=== PATIENT | male | born 1955 | race Hispanic/Latino ===

== ENCOUNTER 2022-12-03 05:56 | Observation (INO) | payer BC, MEDICARE ==
[2022-12-03] MEDS ORDERED: Vancomycin 1 GM VIAL ONE ×2 (06:31→09:36)
[2022-12-03] MEDS ORDERED: Thrombin 5000 UNITS/5 ML VIAL ONE (06:31)
[2022-12-03] MEDS ORDERED: Fentanyl 250 MCG/5 ML VIAL ONE (07:04)
[2022-12-03] MEDS ORDERED: MINERAL OIL/WHITE PETROLATUM 3.5 GM TUBE ONE (07:04)
[2022-12-03] MEDS ORDERED: Sodium Chloride 0.9% 100 ML ONE (07:13)
[2022-12-03] MEDS ORDERED: CEFAZOLIN 2 GM VIAL ONE (07:13)
[2022-12-03 07:18] LABS: #Eosinphils 0.1 thou/uL (0.0-0.7); #Lymphocytes 1.1 thou/uL (1.20-3.40); #Monocytes 0.4 thou/uL (0.11-0.59); #Neutrophils 3.5 thou/uL (1.40-6.50); %Basophils 0.7 % (0.0-1.0); %Eosinophils 1.8 % (0.0-10.0); %Lymphocytes 21.8 % (21.0-51.0); %Neutrophils 67.7 % (42.0-75.0); Mean Corpuscular HGB CONC 33.4 g/dL (32.0-36.0); Mean Corpuscular Hemoglobin 31.1 pg (27.0-31.0); Mean Corpuscular Volume 93.1 fl (78.0-98.0); Mean Platelet Volume 9.2 fL (7.4-10.4); Platelet Count 226 10x3/uL (130-400); RBC Distribution Width 12.2 % (11.5-14.5); White Blood Cell (WBC) Count 5.1 10x3/uL (4.8-10.8)
[2022-12-03 07:29] LABS: INR-International Normal Ratio 1.1; Prothrombin Time 14.5 sec (12.0-14.7)
[2022-12-03 07:31] LABS: Anion Gap 11 mmol/L (10-20); BUN (Urea Nitrogen) 16 mg/dL (8.4-25.7); Calc. Creatinine Clearance 95 mL/min (70-130); Calcium 9.2 mg/dL (7.8-10.44); Carbon Dioxide 24 mmol/L (23-31); Chloride 108 mmol/L (98-107); Estimated GFR 93; Glucose 94 mg/dL (80-115); Potassium 4.1 mmol/L (3.5-5.1); Sodium 139 mmol/L (136-145)
[2022-12-03] MEDS ORDERED: Dexamethasone 20 MG/5 ML VIAL ONE (07:32)
[2022-12-03] MEDS ORDERED: NEOSTIGMINE 3 MG/3 ML SYR 3 MG/3 ML SYRINGE ONE (07:32)
[2022-12-03] MEDS ORDERED: PROPOFOL 200 MG/20 ML VIAL ONE (07:32)
[2022-12-03] MEDS ORDERED: ePHEDrine Sulfate 50 MG/10 ML VIAL ONE (07:32)
[2022-12-03] MEDS ORDERED: GLYCOPYRROLATE/PF 0.2 MG/ML VIAL ONE (07:32)
[2022-12-03] MEDS ORDERED: Rocuronium Bromide 10 MG/ML (10ML VIAL) ONE (07:32)
[2022-12-03] MEDS ORDERED: Ketorolac Tromethamine 30 MG/ML VIAL ONE (07:32)
[2022-12-03] MEDS ORDERED: Lidocaine 1% PF 5 ML VIAL ONE (07:32)
[2022-12-03] MEDS ORDERED: Ondansetron PF 4 MG/2 ML Vial ONE (07:32)
[2022-12-03] MEDS ORDERED: HYDROmorphone 0.5 MG/0.5 ML SYRINGE ONE ×2 (10:02→10:56)
[2022-12-03] MEDS ORDERED: Morphine 2 MG/ML VIAL SLOW IVP PRN (10:20)
[2022-12-03] MEDS ORDERED: Acetaminophen/Codeine 30-300mg Tablet PO PRN (10:20)
[2022-12-03] MEDS ORDERED: traMADol HCl 50 MG TAB PO PRN (10:20)
[2022-12-03] MEDS ORDERED: diphenhydrAMINE 25 MG CAP PO PRN (10:20)
[2022-12-03] MEDS ORDERED: Ondansetron PF 4 MG/2 ML Vial IVP PRN (10:20)
[2022-12-03] MEDS ORDERED: Acetaminophen 325 MG TAB PO PRN (10:20)
[2022-12-03] MEDS ORDERED: Diazepam 5 MG TAB PO PRN (10:21)
[2022-12-03] MEDS ORDERED: hydrALAZINE 20 MG/ML VIAL SLOW IVP PRN (10:21)
[2022-12-03] MEDS ORDERED: FENTANYL 50 MCG/ML 1 ML VIAL ONE ×3 (10:27→10:44)
[2022-12-03] MEDS: Sodium Chloride 0.9% 1,000 ML IV SCH ×2 (12:17→23:43)
[2022-12-03] MEDS: HYDROcodone/Acetaminophen 7.5/325 mg Tablet PO PRN ×3 (12:43→23:44)
[2022-12-03] MEDS: tiZANidine HCl 4 MG TAB PO PRN ×2 (12:43→20:46)
[2022-12-03] MEDS: CEFAZOLIN 2 GM in Sodium Chloride 0.9% 100 ML IVPB SCH ×2 (14:23→23:42)
[2022-12-03] MEDS ORDERED: Dutasteride 0.5 MG CAP PO SCH (21:00)
[2022-12-03] MEDS ORDERED: Atorvastatin Calcium 20 MG TAB PO SCH (21:00)
[2022-12-03] MEDS ORDERED: Tamsulosin HCl 0.4 MG CAP PO SCH (21:00)
[2022-12-04] MEDS: HYDROcodone/Acetaminophen 7.5/325 mg Tablet PO PRN ×2 (06:32→12:45)
[2022-12-04] MEDS: tiZANidine HCl 4 MG TAB PO PRN (07:44)
[2022-12-04] MEDS ORDERED: FLU VACC QS2022-23(65YR UP)/PF 240 MCG/0.7 ML SYRINGE IM ONE (09:00)
[2022-12-04 11:45] VITALS: BP 114/70; TEMP 98.1
[2022-12-04 16:12] VITALS: BMI 24.5
[2022-12-04] MEDS: Sodium Chloride 0.9% 1,000 ML IV SCH (16:15)
== END 2022-12-04 13:11 | disposition home or self-care (01) ==
LOC: SDC 05:56 → SURG B 11:50
PROVIDERS: ADMIT Surgery; ATTEND Surgery
PROC: 01NB0ZZ Release Lumbar Nerve, Open Approach (ICD-10-PCS; principal; 2022-12-03)
DX: M48.062 Spinal stenosis, lumbar region with neurogenic claudication (principal); M54.16 Radiculopathy, lumbar region; E78.5 Hyperlipidemia, unspecified; G89.29 Other chronic pain; M54.9 Dorsalgia, unspecified; N40.0 Benign prostatic hyperplasia without lower urinary tract symptoms; Z79.899 Other long term (current) drug therapy
CPT/HCPCS: 80048; 85025; 85610; 85730; 93005; 93010; 96365; 96376; G0378; J1100; J1170; J1885; J2405; J2704; J3010; J3370; J3490